=== PATIENT | female | born 2000 | race African-American/Black ===

== ENCOUNTER 2023-04-02 08:15 | Emergency (ER) | payer MEDICAID ==
[~2023-04-02] VITALS: Ht 165.1 cm; Wt 56.8 kg
[2023-04-02] MEDS ORDERED: AMOX1TAB16 PO (09:23)
[2023-04-02 09:45] VITALS: BP 126/74
== END 2023-04-02 09:45 | disposition home or self-care (01) ==
LOC: EMS 08:20
DX: K08.89 Other specified disorders of teeth and supporting structures (principal)
CPT/HCPCS: 99283; Z7502